=== PATIENT | female | born 1955 | race Caucasian/White ===

== ENCOUNTER 2018-10-06 14:26 | Emergency (ER) | payer SELFPAY ==
[2018-10-06] MEDS: HYDROCODONE/APAP (5/325) TAB PO (14:41)
[2018-10-06] MEDS: IBUPROFEN 600 MG TAB PO (14:42)
== END 2018-10-06 16:17 | disposition home or self-care (01) ==
LOC: FTE 14:26
DX: S52.531A Colles' fracture of right radius, initial encounter for closed fracture (principal); W18.30XA Fall on same level, unspecified, initial encounter; Y92.9 Unspecified place or not applicable
CPT/HCPCS: 29125; 73110-RT; 99283-25